=== PATIENT | male | born 2000 | race Two or more races ===

== ENCOUNTER 2024-02-14 15:59 | Emergency (ER) | payer MEDICAID, OTHER ==
[~2024-02-14] VITALS: Ht 185.4 cm; Wt 78.0 kg
[2024-02-14 16:10] VITALS: BP 130/84; PULSE 87; RESP 18; O2SAT 96
[2024-02-14 16:42] LABS: Basophils # (auto) 0 10 ^3/uL (0-0.2); Basophils % (auto) 0.3 % (0.0-2.0); Eosinophils # (auto) 0 10 ^3/uL (0-0.8); Eosinophils % (auto) 0.7 % (0.0-7.0); Hematocrit 45.2 % (41.0-53.0); Hemoglobin 15.8 g/dL (13.5-17.5); Lymphocytes # (auto) 2.3 10 ^3/uL (0.4-5.4); Lymphocytes % (auto) 34.4 % (10.0-50.0); Mean Corpuscular Hemoglobin 31.3 pg (28.0-32.0); Mean Corpuscular Hgb Conc. 34.9 g/dL (32.0-36.0); Mean Corpuscular Volume 89.6 fL (80.0-100.0); Monocytes # (auto) 0.7 10 ^3/uL (0-1.3); Neutrophils # (auto) 3.6 10 ^3/uL (1.6-8.6); Neutrophils % (auto) 53.6 % (37.0-80.0); Nucleated Red Blood Cells % 0.6 %; Red Blood Cells 5.04 10^6/uL (4.5-5.90); Red Cell Distribution Width 13.1 % (11.8-14.3); White Blood Cell 6.7 10^3/uL (4.4-10.8)
[2024-02-14 16:48] LABS: Urine Bacteria NONE SEEN /hpf (None Seen); Urine Blood Negative /uL (Negative); Urine Clarity Clear (Clear); Urine Color Colorless (Yellow); Urine Protein, UAD Negative (Negative); Urine Specific Gravity 1.007 (1.001-1.035); Urine Urobilinogen Normal (Negative); Urine WBC 1 /hpf (0 - 3); Urine pH 6.5 (5.0-8.0)
[2024-02-14 16:58] LABS: Alanine Aminotransferase 28 U/L (7-40); Albumin 4.5 g/dL (3.2-4.8); Alkaline Phosphatase 81 U/L (46-116); Anion Gap 2 (5-15); Aspartate Aminotransferase 15 U/L (13-40); BUN/Creatinine Ratio 7.5 (10.0-20.0); Blood Urea Nitrogen 7 mg/dL (9-23); Calcium 9.3 mg/dL (8.7-10.4); Carbon Dioxide 32 mmol/L (20-30); Chloride 102 mmol/L (98-107); Glucose 108 mg/dL (74-106); Sodium 136 mmol/L (136-145); Total Protein 7.3 g/dL (5.7-8.2)
[2024-02-14 17:03] LABS: Bilirubin, Total 0.6 mg/dL (0.2-1.0)
[2024-02-14] MEDS ORDERED: ZOFR4T PO (18:11)
[2024-02-14] MEDS: PROCHLORPERAZINE EDISYLATE 5 MG/ML 2ML VIAL IV ONE (20:30)
[2024-02-14] MEDS: SODIUM CHLORIDE 0.9% 1,000 ML IV ONE (20:30)
== END 2024-02-14 20:31 | disposition home or self-care (01) ==
LOC: ER 15:59
DX: F11.20 Opioid dependence, uncomplicated (principal); R11.2 Nausea with vomiting, unspecified; F15.90 Other stimulant use, unspecified, uncomplicated; Z79.899 Other long term (current) drug therapy
CPT/HCPCS: 36415; 80053; 81001; 85025

== ENCOUNTER 2024-09-04 14:26 | Emergency (ER) | payer SELFPAY ==
[~2024-09-04] VITALS: Ht 185.4 cm; Wt 83.2 kg
[~2024-09-04 14:26] MED LIST: ZOFR4T PO
[2024-09-04 15:56] VITALS: BP 132/88; PULSE 98; RESP 20; TEMP 98; O2SAT 100
[2024-09-04] MEDS: KETOROLAC TROMETH 60MG/2ML VIAL IM ONE (15:56)
[2024-09-04] MEDS ORDERED: IBUP-1455 PO (16:40)
== END 2024-09-04 17:04 | disposition home or self-care (01) ==
LOC: ER 14:26
DX: M25.462 Effusion, left knee (principal); F12.90 Cannabis use, unspecified, uncomplicated
CPT/HCPCS: 73562; 96372; 99283; J1885